=== PATIENT | male | born 1990 | race Caucasian/White ===

== ENCOUNTER 2018-08-20 12:23 | Inpatient (IN) | payer MEDICAID, OTHER ==
[2018-08-20] VITALS (11 sets, daily range): BP systolic 133–183; BP diastolic 94–123
[~2018-08-20] VITALS: Ht 190.5 cm; Wt 90.7 kg
--- OUTSIDE RECORDS SUMMARY | 2018-08-20 12:29 | XMS REPORT | Continuity of Care Document ---
Author Author [facility] Address Unknown Phone Unavailable Allergies There is no data. Medications There is no data. Problems There is no data. Procedures There is no data. Results There is no data. Encounters ACCT No. Visit Date/Time Discharge Status Pt. Type Provider Facility Loc./Unit Complaint [id number] 08/08/2013 17:59:00 08/08/2013 23:59:59 CLS Outpatient
[2018-08-20] MEDS ORDERED: LORazepam INJ 2 MG/ML (ATIVAN) VIAL ONE (12:45)
[2018-08-20 12:48] LABS: BASOPHILS % (AUTO) 1 % (0-10); EOSINOPHILS # (AUTO) 0.3 10^3/uL (0.0-0.3); EOSINOPHILS % (AUTO) 5 % (0-10); HEMATOCRIT 40 % (40-54); HEMOGLOBIN 14.4 G/DL (13.3-17.7); LYMPHOCYTES # (AUTO) 1.5 X 10^3 (1.0-4.0); LYMPHOCYTES % (AUTO) 28 % (12-44); MEAN CORPUSCULAR HEMOGLOBIN 36 PG (25-34); MEAN CORPUSCULAR HGB CONC 36 G/DL (32-36); MEAN CORPUSCULAR VOLUME 101 FL (80-99); MONOCYTES # (AUTO) 0.4 X 10^3 (0.0-1.0); MONOCYTES % (AUTO) 7 % (0-12); NEUTROPHILS # (AUTO) 3.3 X 10^3 (1.8-7.8); NEUTROPHILS % (AUTO) 60 % (42-75); PLATELET COUNT 168 10^3/uL (130-400); RED CELL DISTRIBUTION WIDTH 12.4 % (10.0-14.5); WHITE BLOOD COUNT 5.5 10^3/uL (4.3-11.0)
[2018-08-20] MEDS ORDERED: NS IV 1000 ML 1,000 ML IV ONE (12:55)
[2018-08-20] MEDS ORDERED: QUET100T PO (12:56)
[2018-08-20] MEDS ORDERED: OMEP20TA7 PO (12:56)
[2018-08-20] MEDS ORDERED: PROP10TA8 PO (12:56)
[2018-08-20] MEDS ORDERED: AMPH20CA5 PO (12:56)
[2018-08-20 13:01] LABS: ALANINE AMINOTRANSFERASE 82 U/L (0-55); ALBUMIN 4.5 GM/DL (3.2-4.5); ALKALINE PHOSPHATASE 95 U/L (40-136); BILIRUBIN,TOTAL 0.8 MG/DL (0.1-1.0); BUN/CREATININE RATIO 4; CALCIUM 10.5 MG/DL (8.5-10.1); CARBON DIOXIDE 18 MMOL/L (21-32); CHLORIDE 99 MMOL/L (98-107); CREATININE SERUM 1.05 MG/DL (0.60-1.30); GFR ESTIMATED > 60; GLUCOSE 158 MG/DL (70-105); MAGNESIUM 2.7 MG/DL (1.8-2.4); POTASSIUM 3.6 MMOL/L (3.6-5.0); SODIUM 139 MMOL/L (135-145); TOTAL PROTEIN 7.9 GM/DL (6.4-8.2)
[2018-08-20 13:11] LABS: BILIRUBIN,URINE NEGATIVE (NEGATIVE); CLARITY,URINE CLEAR; COLOR,URINE YELLOW; GLUCOSE, URINE (UA) NEGATIVE (NEGATIVE); KETONES,URINE NEGATIVE (NEGATIVE); LEUKOCYTE ESTERASE ,URINE 1+ (NEGATIVE); NITRITE,URINE NEGATIVE (NEGATIVE); PH,URINE 5 (5-9); PROTEIN,URINE 2+ (NEGATIVE); UROBILINOGEN,URINE NORMAL (NORMAL)
[2018-08-20 13:19] LABS: BACTERIA,URINE NEGATIVE /HPF; GRANULAR CASTS,URINE RARE /LPF; RBC,URINE 0-2 /HPF; SQUAMOUS EPITHELIAL CELL,UR RARE /HPF
[2018-08-20 13:26] LABS: AMPHETAMINE SCREEN, URINE POSITIVE (NEGATIVE); BARBITURATE SCREEN URINE NEGATIVE (NEGATIVE); BENZODIAZEPINES SCREEN URINE NEGATIVE (NEGATIVE); CANNABINOID SCREEN, URINE POSITIVE (NEGATIVE); COCAINE SCREEN URINE NEGATIVE (NEGATIVE); METHADONE STAT NEGATIVE (NEGATIVE); METHAMPHETAMINE SCREEN URINE S NEGATIVE (NEGATIVE); OPIATE SCREEN URINE NEGATIVE (NEGATIVE); OXYCODONE STAT NEGATIVE (NEGATIVE); PROPOXYPHENE STAT NEGATIVE (NEGATIVE); TRICYCLIC ANTIDEPRESSANTS SCRE POSITIVE (NEGATIVE)
--- NOTE | 2018-08-20 13:44 | Diagnostic Imaging Report ---
PROCEDURE: CT head without contrast. TECHNIQUE: Multiple contiguous axial images were obtained through the brain without the use of intravenous contrast. INDICATION: Seizure. FINDINGS: The ventricles and sulci are within normal limits. There is no hydrocephalus or cerebral edema. There is no midline shift or mass effect. There is no intracranial mass, hemorrhage, or extra-axial fluid collection. The visualized paranasal sinuses and mastoid air cells are clear. There are no regional areas of decreased attenuation appreciated to suggest an acute CVA. IMPRESSION: No acute intracranial abnormality. Dictated by: Dictated on workstation # [id number]
--- NOTE | 2018-08-20 13:56 | Diagnostic Imaging Report ---
INDICATION: Pain. Three views were obtained. FINDINGS: The left foot is normal. There is no fracture dislocation. Soft tissues are unremarkable. IMPRESSION: No fracture or dislocation. Dictated by: Dictated on workstation # [id number]
--- NOTE | 2018-08-20 14:01 | Diagnostic Imaging Report ---
INDICATION: Seizure and fell, pain TECHNIQUE: 3 AP view foot along with oblique and lateral view right great toe 1:43 PM CORRELATION STUDY: None FINDINGS: Osseous structures of the foot intact. Alignment anatomic. Toes are held in slight flexure. The soft tissues are unremarkable. IMPRESSION: 1. Negative for acute bony abnormality of the right foot and great toe. Dictated by: Dictated on workstation # [id number]
--- NOTE | 2018-08-20 14:09 | Diagnostic Imaging Report ---
PROCEDURE: CT chest, abdomen, and pelvis with contrast. INDICATION: Seizure, possibly hit head in bath. Diminished recent alcohol intake. Pain between shoulders and pain with breathing. Back pain x1 week but significantly increased today. TECHNIQUE: CT imaging of the chest, abdomen and pelvis following the administration of intravenous contrast. CORRELATION STUDY: None FINDINGS: CT CHEST: Heart size normal. Trace pericardial effusion. No significant mediastinal hematoma. No pathologic enlarged mediastinal and/or hilar lymph nodes. Thoracic aortic contour and lumen, unremarkable, lung zhao are clear. No infiltrate, effusion or pneumothorax. Osseous structures demonstrate ribs and sternum to be intact. There is slight loss of height with anterior wedging multiple thoracic vertebral bodies. Most pronounced at T7, to a lesser degree T8-T9 vertebral body segments. Age of these are somewhat indeterminate. Only slight loss of height demonstrated. No significant surrounding soft tissue edema. CT ABDOMEN and PELVIS: Liver enlarged at greater than 20 cm. Rather diffuse hepatic steatosis is present without definitive focal lesion. Gallbladder, spleen and adrenal glands are unremarkable. Question very slight haziness about the region of the uncinate process of the pancreas. Pancreas otherwise unremarkable. Abdominal aorta normal in contour. Kidneys with normal enhancement. There is diffuse wall thickening of the colon. This may largely be attributed to its relatively collapsed state. Colitis would be difficult to exclude. Normal appendix present. No significant abdominal ascites or free air. The urinary bladder is unremarkable but is relatively decompressed. Prostate gland unremarkable. Structures including lumbar spine, sacrum and pelvis appearing unremarkable. IMPRESSION: CT CHEST: 1. There is slight loss of height with superior compression deformities and anterior wedging of multiple midthoracic vertebral bodies. Age of these are indeterminate. Given the appearance and history, possibility of acute compression deformity is not excluded. If further assessment is desired, MRI would be recommended. 2. Otherwise, negative for acute findings in the chest. CT ABDOMEN and PELVIS: 1. Negative for acute traumatic abdomen about the abdomen or pelvis. 2. Hepatomegaly with rather significant severity hepatic steatosis. 3. There is diffuse colonic wall thickening. Likely largely due to its collapsed state. Component of colitis would be difficult to exclude. No obstruction. Normal appendix. Dictated by: Dictated on workstation # [id number]
--- NOTE | 2018-08-20 14:27 | ED Neurological Problem ---
General Chief Complaint: Neurological Problems Stated Complaint: SEIZURE ACTIVITY Nursing Triage Note: pt presents to ed via ems from home for seizure. reports has had one previous seizure reltated to dehydration years ago. pt states he was in his bathroom before the seizure and possible hit his head on the tub. pt reports he has recently within the last 2-3 weeks cut down his alcohol intake to try to get off alcohol. pt reports pain in inbetween shoulders and pain with breathing. pt reports he has had back pain x 1 week but is significantly worse today. Nursing Sepsis Screen: No Definite Risk Source: patient, family Exam Limitations: no limitations History of Present Illness Date Seen by Provider: Aug 20, 2018 Time Seen by Provider: 12:39 Initial Comments Patient presents via EMS after having a seizure at home. His girlfriend heard him collapse in the bathroom and then found him convulsing on the floor. She reports the entire event lasted less than 2 minutes. He was conscious afterwards but had confused speech. This improved prior to arriving at the ER. Patient has been attempting to wean himself off alcohol. His last drink was sometime last night. He is accustomed to drinking up to 1 L of vodka daily. He complains of some upper back pain between and below his shoulder blades. He has had this for several days but it is much worse after the seizure. Patient was ambulatory at the scene and walked out with EMS. Patient reports he had one seizure previously about 5 years ago when he was dehydrated. Fingerstick blood sugar was 176. Allergies and Home Medications Allergies Coded Allergies: No Known Drug Allergies (Unverified , 08/20/18) Home Medications Propranolol HCl 10 Mg Tablet, 5 MG PO HS, (Reported) Quetiapine Fumarate 100 Mg Tablet, 100 MG PO HS, (Reported) Patient Home Medication List Home Medication List Reviewed: Yes Review of Systems Review of Systems Constitutional: no symptoms reported Eyes: No Symptoms Reported Ears, Nose, Mouth, Throat: no symptoms reported Respiratory: no symptoms reported Cardiovascular: see HPI, other (Tachycardia) Gastrointestinal: no symptoms reported Genitourinary: no symptoms reported Musculoskeletal: see HPI Skin: no symptoms reported Psychiatric/Neurological: See HPI Endocrine: No Symptoms Reported Hematologic/Lymphatic: No Symptoms Reported Past Bhdbvci-Rmanme-Vbahmp Hx Past Med/Social Hx: Reviewed and Corrections made Patient Social History Alcohol Use: Regular Use Alcohol Beverage of Choice: Beer, Vodka (Typically 500-750 mL daily.) Recreational Drug Use: No Smoking Status: Former Smoker Type Used: Cigarettes Former Smoker, Quit: Jul 05, 2018 Recent Foreign Travel: No Contact w/Someone Who Travel: No Recent Infectious Disease Expo: No Recent Hopitalizations: No Physical Abuse: No Sexual Abuse: No Mistreated: No Fear: No Seasonal Allergies Seasonal Allergies: No Past Medical History Surgeries: Yes (r foot) Respiratory: No Cardiac: Yes Hypertension Neurological: Yes (has had 1 seizure before) Genitourinary: No Gastrointestinal: Yes Gastroesophageal Reflux Musculoskeletal: No Endocrine: No HEENT: No Cancer: No Psychosocial: Yes (Alcoholism) Sleep Difficulties Integumentary: Yes Eczema Blood Disorders: No Adverse Reaction/Blood Tranf: No Physical Exam Vital Signs Vital Signs - First Documented 08/20/18 12:35 Temp 98.8 Pulse 130 Resp 18 B/P (MAP) 156/113 (127) Pulse Ox 97 Capillary Refill : Less Than 3 Seconds Height, Weight, BMI Height: 6'3.00" Weight: 200lbs. oz. 90.465190zt; BMI Method:Stated General Appearance: WD/WN, no apparent distress HEENT: PERRL/EOMI, pharynx normal, other (Contusion left forehead) Neck: non-tender, full range of motion, supple, normal inspection Respiratory: lungs clear, normal breath sounds, no respiratory distress, no accessory muscle use Cardiovascular: regular rate, rhythm, no edema, no murmur Gastrointestinal: normal bowel sounds, non tender, soft Back: normal inspection, vertebral tenderness (Lower thoracic spine mildly tender) Extremities: normal inspection, no pedal edema, other (Damage to the distal right great toe with a crack through the nail. Dry blood on the toe but no active bleeding. Left great toe is also injured with ecchymosis under the nail. ) Neurologic/Psychiatric: wire spooler II-XII nml as tested, no motor/sensory deficits, alert, normal mood/affect, oriented x 3 Crainal Nerves: normal hearing, normal speech, PERRL Coordination/Gait: normal gait Motor/Sensory: no motor deficit, no sensory deficit Skin: normal color, warm/dry Progress/Results/Core Measures Results/Orders Lab Results Laboratory Tests Test 08/20/18 12:34 08/20/18 12:45 08/20/18 12:54 08/20/18 13:02 Range/Units White Blood Count 5.5 4.3-11.0 10^3/uL Red Blood Count 4.01 L 4.35-5.85 10^6/uL Hemoglobin 14.4 13.3-17.7 G/DL Hematocrit 40 40-54 % Mean Corpuscular Volume 101 H 80-99 FL Mean Corpuscular Hemoglobin 36 H 25-34 PG Mean Corpuscular Hemoglobin Concent 36 32-36 G/DL Red Cell Distribution Width 12.4 10.0-14.5 % Platelet Count 168 130-400 10^3/uL Mean Platelet Volume 9.0 7.4-10.4 FL Neutrophils (%) (Auto) 60 42-75 % Lymphocytes (%) (Auto) 28 12-44 % Monocytes (%) (Auto) 7 0-12 % Eosinophils (%) (Auto) 5 0-10 % Basophils (%) (Auto) 1 0-10 % Neutrophils # (Auto) 3.3 1.8-7.8 X 10^3 Lymphocytes # (Auto) 1.5 1.0-4.0 X 10^3 Monocytes # (Auto) 0.4 0.0-1.0 X 10^3 Eosinophils # (Auto) 0.3 0.0-0.3 10^3/uL Basophils # (Auto) 0.0 0.0-0.1 10^3/uL Prothrombin Time 13.0 12.2-14.7 SEC INR Comment 1.0 0.8-1.4 Activated Partial Thromboplast Time 27 24-35 SEC Sodium Level 139 135-145 MMOL/L Potassium Level 3.6 3.6-5.0 MMOL/L Chloride Level 99 98-107 MMOL/L Carbon Dioxide Level 18 L 21-32 MMOL/L Anion Gap 22 H 5-14 MMOL/L Blood Urea Nitrogen 4 L 7-18 MG/DL Creatinine 1.05 0.60-1.30 MG/DL Estimat Glomerular Filtration Rate > 60 BUN/Creatinine Ratio 4 Glucose Level 158 H 70-105 MG/DL Calcium Level 10.5 H 8.5-10.1 MG/DL Corrected Calcium 10.1 8.5-10.1 MG/DL Magnesium Level 2.7 H 1.8-2.4 MG/DL Total Bilirubin 0.8 0.1-1.0 MG/DL Aspartate Amino Transf (AST/SGOT) 173 H 5-34 U/L Alanine Aminotransferase (ALT/SGPT) 82 H 0-55 U/L Alkaline Phosphatase 95 40-136 U/L Total Protein 7.9 6.4-8.2 GM/DL Albumin 4.5 3.2-4.5 GM/DL Serum Alcohol < 10 <10 MG/DL Glucometer 176 H 70-110 MG/DL Lipase 153 H 8-78 U/L Urine Color YELLOW Urine Clarity CLEAR Urine pH 5 5-9 Urine Specific [place] 1.015 L 1.016-1.022 Urine Protein 2+ H NEGATIVE Urine Glucose (UA) NEGATIVE NEGATIVE Urine Ketones NEGATIVE NEGATIVE Urine Nitrite NEGATIVE NEGATIVE Urine Bilirubin NEGATIVE NEGATIVE Urine Urobilinogen NORMAL NORMAL MG/DL Urine Leukocyte Esterase 1+ H NEGATIVE Urine RBC (Auto) 2+ H NEGATIVE Urine RBC 0-2 /HPF Urine WBC 5-10 H /HPF Urine Squamous Epithelial Cells RARE /HPF Urine Crystals NONE /LPF Urine Bacteria NEGATIVE /HPF Urine Casts PRESENT /LPF Urine Granular Casts RARE /LPF Urine Mucus NEGATIVE /LPF Urine Culture Indicated YES Urine Opiates Screen NEGATIVE NEGATIVE Urine Oxycodone Screen NEGATIVE NEGATIVE Urine Methadone Screen NEGATIVE NEGATIVE Urine Propoxyphene Screen NEGATIVE NEGATIVE Urine Barbiturates Screen NEGATIVE NEGATIVE Ur Tricyclic Antidepressants Screen POSITIVE H NEGATIVE Urine Phencyclidine Screen NEGATIVE NEGATIVE Urine Amphetamines Screen POSITIVE H NEGATIVE Urine Methamphetamines Screen NEGATIVE NEGATIVE Urine Benzodiazepines Screen NEGATIVE NEGATIVE Urine Cocaine Screen NEGATIVE NEGATIVE Urine Cannabinoids Screen POSITIVE H NEGATIVE My Orders Orders - MEGHANA FORBES MD Alcohol (08/20/18 12:41) Cbc With Automated Diff (08/20/18 12:41) Comprehensive Metabolic Panel (08/20/18 12:41) Drug Screen Stat (Urine) (08/20/18 12:41) Magnesium (08/20/18 12:41) Ua Culture If Indicated (08/20/18 12:41) Accucheck Stat ONCE (08/20/18 12:41) Saline Lock/Iv-Start (08/20/18 12:41) Ekg Tracing (08/20/18 12:41) Monitor-Rhythm Ecg Trace Only (08/20/18 12:41) Ekg Tracing (08/20/18 12:43) Lorazepam Injection (Ativan Injection) (08/20/18 12:45) Ns Iv 1000 Ml (Sodium Chloride 0.9%) (08/20/18 12:55) Ct Head Wo (08/20/18 12:55) Ct Chest/Abdomen/Pelvis W (08/20/18 12:55) Toe(S) (08/20/18 12:55) Toe(S) (08/20/18 12:55) Urine Culture (08/20/18 13:02) Lorazepam Injection (Ativan Injection) (08/20/18 14:45) Medications Given in ED Current Medications Medications Dose Ordered Sig/Vonda Route Start Time Stop Time Status Last Admin Dose Admin Lorazepam 2 mg ONCE ONCE IVP 08/20/18 14:45 08/20/18 14:46 DC 08/20/18 14:49 2 MG Lorazepam 2 mg STK-MED ONCE .ROUTE 08/20/18 12:45 08/20/18 12:50 DC 08/20/18 12:56 2 MG Sodium Chloride 1,000 ml @ 0 mls/hr Q0M ONCE IV 08/20/18 12:55 08/20/18 12:59 DC 08/20/18 12:40 0 MLS/HR Vital Signs/I&O 08/20/18 12:35 Temp 98.8 Pulse 130 Resp 18 B/P (MAP) 156/113 (127) Pulse Ox 97 Blood Pressure Mean: 127 FSBG Bedside Testing Finger Stick Blood Glucose: 176 Blood Glucose Action Taken: notified Progress Progress Note : Progress Note Patient was alert and oriented on arrival. He had signs and symptoms of alcohol withdrawal including seizure, hypertension, and tachycardia. His plan was to taper alcohol off while trying to quit. However, given these dangerous signs and symptoms of alcohol withdrawal, he would like to be admitted to help him get through the remainder of his withdrawal and then enter into some type of treatment program. He would like to try to do the treatment program somewhere in [place] if possible. He has a [employer] plan and [place]. He received 1 L of IV fluid and a total of 4 mg of Ativan in the ER. Patient complained of some abdominal pain radiating to the back as he was being transferred to the floor. Lipase was added at that time and was found to be slightly elevated. Initial ECG Impression Date: Aug 20, 2018 Initial ECG Impression Time: 15:07 Initial ECG Rate: 1230 Diagnostic Imaging Diagonstic Imaging: CT Plain Films/CT/US/NM/MRI: head Comments CT head viewed by me and report reviewed. See report below: NAME: ALBERTO MCDUFFIE REC#: [id number] PT STATUS: REG ER : 1990 PHYSICIAN: MEGHANA FORBES MD ADMIT DATE: 08/20/18/ER Signed Date of Exam:08/20/18 CT HEAD WO PROCEDURE: CT head without contrast. TECHNIQUE: Multiple contiguous axial images were obtained through the brain without the use of intravenous contrast. INDICATION: Seizure. FINDINGS: The ventricles and sulci are within normal limits. There is no hydrocephalus or cerebral edema. There is no midline shift or mass effect. There is no intracranial mass, hemorrhage, or extra-axial fluid collection. The visualized paranasal sinuses and mastoid air cells are clear. There are no regional areas of decreased attenuation appreciated to suggest an acute CVA. IMPRESSION: No acute intracranial abnormality. Dictated by: Dictated on workstation # [id number] Dict: 08/20/18 1339 Trans: 08/20/18 1356 [id number] Interpreted by: ONEAL BETANCOURT MD Electronically signed by: ONEAL BETANCOURT MD 08/20/18 1356 Diagonstic Imaging: CT Plain Films/CT/US/NM/MRI: chest, abdomen, pelvis Comments CT chest, abdomen and pelvis viewed by me and report reviewed. See report below : NAME: ALBERTO MCDUFFIE [facility] REC#: [id number] PT STATUS: REG ER : 1990 PHYSICIAN: MEGHANA FORBES MD ADMIT DATE: 08/20/18/ER Draft Date of Exam:08/20/18 CT CHEST/ABDOMEN/PELVIS W PROCEDURE: CT chest, abdomen, and pelvis with contrast. INDICATION: Seizure, possibly hit head in bath. Diminished recent alcohol intake. Pain between shoulders and pain with breathing. Back pain x1 week but significantly increased today. TECHNIQUE: CT imaging of the chest, abdomen and pelvis following the administration of intravenous contrast. CORRELATION STUDY: None FINDINGS: CT CHEST: Heart size normal. Trace pericardial effusion. No significant mediastinal hematoma. No pathologic enlarged mediastinal and/or hilar lymph nodes. Thoracic aortic contour and lumen, unremarkable, lung zhao are clear. No infiltrate, effusion or pneumothorax. Osseous structures demonstrate ribs and sternum to be intact. There is slight loss of height with anterior wedging multiple thoracic vertebral bodies. Most pronounced at T7, to a lesser degree T8-T9 vertebral body segments. Age of these are somewhat indeterminate. Only slight loss of height demonstrated. No significant surrounding soft tissue edema. CT ABDOMEN and PELVIS: Liver enlarged at greater than 20 cm. Rather diffuse hepatic steatosis is present without definitive focal lesion. Gallbladder, spleen and adrenal glands are unremarkable. Question very slight haziness about the region of the uncinate process of the pancreas. Pancreas otherwise unremarkable. Abdominal aorta normal in contour. Kidneys with normal enhancement. There is diffuse wall thickening of the colon. This may largely be attributed to its relatively collapsed state. Colitis would be difficult to exclude. Normal appendix present. No significant abdominal ascites or free air. The urinary bladder is unremarkable but is relatively decompressed. Prostate gland unremarkable. Structures including lumbar spine, sacrum and pelvis appearing unremarkable. IMPRESSION: CT CHEST: 1. There is slight loss of height with superior compression deformities and anterior wedging of multiple midthoracic vertebral bodies. Age of these are indeterminate. Given the appearance and history, possibility of acute compression deformity is not excluded. If further assessment is desired, MRI would be recommended. 2. Otherwise, negative for acute findings in the chest. CT ABDOMEN and PELVIS: 1. Negative for acute traumatic abdomen about the abdomen or pelvis. 2. Hepatomegaly with rather significant severity hepatic steatosis. 3. There is diffuse colonic wall thickening. Likely largely due to its collapsed state. Component of colitis would be difficult to exclude. No obstruction. Normal appendix. Dictated on workstation # [id number] Dict: 08/20/18 1355 Trans: 08/20/18 1409 [facility] [id number] Interpreted by: LANE CHRISTIANSEN DO Departure Communication (Admissions) Time/Spoke to Admitting Phy: 14:45 Dr. Pierre Impression Primary Impression: Alcohol withdrawal seizure Qualified Codes: F10.239 - Alcohol dependence with withdrawal, unspecified; R56.9 - Unspecified convulsions Additional Impressions: Contusion of forehead Qualified Codes: S00.83XA - Contusion of other part of head, initial encounter Compression fx, thoracic spine Qualified Codes: S22.000A - Wedge compression fracture of unspecified thoracic vertebra, initial encounter for closed fracture Toe contusion Qualified Codes: S90.219A - Contusion of unspecified great toe with damage to nail, initial encounter Elevated lipase Disposition: 09 ADMITTED INPATIENT Condition: Improved Admissions Decision to Admit Reason: Admit from ER (General) Decision to Admit/Date: Aug 20, 2018 Time/Decision to Admit Time: 12:45 MEGHANA FORBES MD Aug 20, 2018 14:27
[2018-08-20] MEDS ORDERED: LORazepam INJ 2 MG/ML (ATIVAN) VIAL IVP ONE (14:45)
[2018-08-20] MEDS ORDERED: fentaNYL INJECTION 100 MCG/2 ML AMP IVP ONE (15:15)
--- OUTSIDE RECORDS SUMMARY | 2018-08-20 15:34 | XMS REPORT | Continuity of Care Document ---
Author Author [facility] Address Unknown Phone Unavailable Allergies There is no data. Medications There is no data. Problems There is no data. Procedures There is no data. Results There is no data. Encounters ACCT No. Visit Date/Time Discharge Status Pt. Type Provider Facility Loc./Unit Complaint [id number] 08/08/2013 17:59:00 08/08/2013 23:59:59 CLS Outpatient
[2018-08-20] MEDS ORDERED: HYDROcodone/APAP 5 MG/325 MG (LORTAB) TAB PO PRN (16:30)
[2018-08-20] MEDS ORDERED: LORazepam INJ 2 MG/ML (ATIVAN) VIAL IM/IV PRN (16:30)
[2018-08-20] MEDS ORDERED: ANTACID SUSP 30 ML UDC (MYLANTA) PO PRN (16:30)
[2018-08-20] MEDS ORDERED: SENNA W/DOCUSATE (SENOKOT S) TABLET PO PRN (16:30)
[2018-08-20] MEDS ORDERED: D5 1/2 NS 1000 ML IV SOLUTION 1,000 ML IV PRN (16:30)
[2018-08-20] MEDS ORDERED: ONDANSETRON 4 MG (ZOFRAN) ORAL DISSOLVE TAB SL PRN (16:30)
[2018-08-20] MEDS ORDERED: ONDANSETRON 4 MG/2 ML (SDV) Z0FRAN IV PRN (16:30)
--- NOTE | 2018-08-20 16:44 | NUR ---
ALBERTO MCDUFFIE admitted to room CU9-1, with an admitting diagnosis of alcohol withdrawl, on 08/20/18 from AM via cart, accompanied by staff.ALBERTO MCDUFFIE introduced to surroundings, call light, bed controls, phone, TV, temperature control, lights, meal times, smoking policy, visitor policy, side rail policy, bathrooms and showers. Patient Rights given to patient in the handbook. ALBERTO MCDUFFIE verbalizes understanding that [facility] is not responsible for the loss or damage to any personal effects or valuables that are kept in the patients posession during their hospitalization. The following Patient Care Plans were discussed with the pt: Discharge Planning. ALBERTO MCDUFFIE verbalizes understanding of Interdisciplinary Patient Education. Patient and/or family were informed about the Rapid Response Team and its purpose.
[2018-08-20] MEDS: NS IV 1000 ML 1,000 ML IV SCH ×2 (17:06→23:02)
[2018-08-20] MEDS: PROPRANOLOL 20 MG (INDERAL) TABLET PO SCH ×2 (17:50→21:41)
--- NOTE | 2018-08-20 19:33 | NUR ---
Mag level elevated, order to hold Mag dose. And resume patient home Seroquel.
[2018-08-20] MEDS: LORazepam INJ 2 MG/ML (ATIVAN) VIAL IV PRN (19:46)
[2018-08-20] MEDS: MAGNESIUM OXIDE (MAG-OX)400 MG TAB PO SCH (19:47)
[2018-08-20] MEDS: QUEtiapine 200 MG (SEROquel) TAB IMMEDIATE RELEASE PO SCH (22:59)
[2018-08-20] MEDS: LORazepam 1 MG (ATIVAN) TAB PO PRN (23:02)
[2018-08-21] VITALS (19 sets, daily range): BP systolic 87–144; BP diastolic 49–107
[2018-08-21] MEDS: NS IV 1000 ML 1,000 ML IV SCH ×3 (06:10→19:07)
[2018-08-21] MEDS: LORazepam 1 MG (ATIVAN) TAB PO PRN ×4 (06:27→19:59)
[2018-08-21] MEDS: PROPRANOLOL 20 MG (INDERAL) TABLET PO SCH ×4 (06:27→21:45)
[2018-08-21] MEDS ORDERED: FLU QUADRIvalent (5+ YOA) 2018-2019 (AFLURIA) 0.5 ML IM ONE (07:30)
[2018-08-21] MEDS: MAGNESIUM OXIDE (MAG-OX)400 MG TAB PO SCH ×2 (07:39→19:06)
[2018-08-21] MEDS: FOLIC ACID 1 MG TAB PO SCH (08:27)
[2018-08-21] MEDS: THIAMINE 100 MG (VITAMIN B-1) TAB PO SCH (08:27)
[2018-08-21] MEDS: MULTIVIT W/MINERALS TAB (THERAGRAN M) PO SCH (08:28)
--- NOTE | 2018-08-21 10:12 | Consultation ---
History of Present Illness History of Present Illness Patient Consulted On(pierce/time) 08/21/18 10:06 Date Seen by Provider: Aug 21, 2018 Time Seen by Provider: 09:45 Reason for Visit: Thoracic Pain History of Present Illness 27 y/o male, attempting to detox from ETOH, apparently had witnessed seziure. Admitted to hospital, complaining about pain between shoulder blades, CT scan shows possible Thoracic spine fractures. Denies any prior history of pain or trauma. Denies any neuro symptoms presently. Allergies and Home Medications Allergies Coded Allergies: No Known Drug Allergies (Unverified , 08/20/18) Home Medications Propranolol HCl 10 Mg Tablet, 5 MG PO HS, (Reported) Quetiapine Fumarate 100 Mg Tablet, 100 MG PO HS, (Reported) Patient Home Medication List Home Medication List Reviewed: Yes Past Rcnahfg-Mwrejz-Gehhqj Hx Past Med/Social Hx: Reviewed and Corrections made Patient Social History Alcohol Use: Regular Use Number of Drinks Today: AA Alcohol Beverage of Choice: Beer, Vodka (Typically 500-750 mL daily.) Recreational Drug Use: Yes (occasionally smokes pot) Smoking Status: Former Smoker Type Used: Cigarettes Former Smoker, Quit: Jul 05, 2018 Recent Foreign Travel: No Contact w/Someone Who Travel: No Recent Infectious Disease Expo: No Recent Hopitalizations: No Physical Abuse: No Sexual Abuse: No Mistreated: No Fear: No Seasonal Allergies Seasonal Allergies: No Past Medical History Surgeries: Yes (r foot) Respiratory: No Cardiac: Yes Hypertension Neurological: Yes (has had 1 seizure before) Genitourinary: No Gastrointestinal: Yes Gastroesophageal Reflux Musculoskeletal: No Endocrine: No HEENT: No Cancer: No Psychosocial: Yes (Alcoholism) Sleep Difficulties Integumentary: Yes Eczema Blood Disorders: No Adverse Reaction/Blood Tranf: No Review of Systems-General Constitutional: weakness EENTM: no symptoms reported Respiratory: no symptoms reported Cardiovascular: no symptoms reported Gastrointestinal: no symptoms reported Genitourinary: no symptoms reported Musculoskeletal: back pain Skin: no symptoms reported Psychiatric/Neurological: Weakness Physical Exam-General Problems Physical Exam Vital Signs Vital Signs - First Documented 08/20/18 08/20/18 12:35 16:15 Temp 98.8 Pulse 130 Resp 18 B/P (MAP) 156/113 (127) Pulse Ox 97 O2 Delivery Room Air Capillary Refill : Less Than 3 Seconds General Appearance: WD/WN, no apparent distress Eyes: Bilateral Eye Normal Inspection HEENT: PERRL/EOMI Neck: non-tender, full range of motion, supple, normal inspection Respiratory: no respiratory distress, no accessory muscle use Cardiovascular: regular rate, rhythm Gastrointestinal: soft Rectal: deferred Back: muscle spasm, vertebral tenderness Extremities: normal range of motion, non-tender, normal inspection, no pedal edema, no calf tenderness, normal capillary refill Neurologic/Psychiatric: tag writer II-XII nml as tested, no motor/sensory deficits, alert, normal mood/affect Skin: normal color, warm/dry Lymphatic: no adenopathy Comments CT scan shows very minimal <10 % compression deformities of 2 of the upper/ middle vertabrae in the T spine. No signs of unstable fracture are noted. Assessment/Plan Assessment/Plan Admission Diagnosis/Plan ETOH withdrawal Seizures Thoracic compression fracture, mild, without neurologic involvement, stable Plan: we discussed options, his pain is already better, I think bracing would be difficult, and cumbersome, and unlikely to be compliant with anyway and not provide much clinical benefit. There for pain control, limited activities as he tolerates and follow up with me in 2-4 weeks as an outpatient. Clinical Quality Measures DVT/VTE Risk/Contraindication: RFS Level Per Nursing on Admit: 1=Low/No VTE PPX GERA MARTÍNEZ MD Aug 21, 2018 10:12
--- NOTE | 2018-08-21 11:00 | NUR ---
Spoke to patient he stated he took Omeprazole, Seroquel, Adderall, and Propranolol. He stated is prescribed the 20mg Adderall he does not take them all the time and when he does he cuts them in 1/. He did not say he had a local pharmacy. States he filled them in [place] where is from.
--- NOTE | 2018-08-21 13:34 | History & Physical-Hospitalist ---
History of Present Illness HPI/Chief Complaint This is a 27-year-old white male who was admitted with a new seizure after trying to taper off his alcohol intake to aggressively. He had had one previous seizure when he thinks he was drinking heavily and was dehydrated. He does complain about them a lot of muscle aches and pains from the seizure and is very interested in going to rehabilitation to help curtail his alcohol intake and obtain sobriety Source: patient Exam Limitations: no limitations Date Seen 08/21/18 Time Seen by a Provider: 13:00 Attending Physician Danae Muller MD PCP No,Local Physician Referring Physician Date of Admission Aug 20, 2018 at 14:45 Home Medications & Allergies Home Medications Reviewed patient Home Medication Reconciliation performed by pharmacy medication reconciliations nutrition technician and/or nursing. Patients Allergies have been reviewed. Allergies Allergies Coded Allergies No Known Drug Allergies (Unverified08/20/18) Past Chuhhpo-Daiqgv-Osshub Hx Past Med/Social Hx: Reviewed Nursing Past Med/Soc Hx, Reviewed and Corrections made Patient Social History Marrital Status: single, cohabiting Employed/Student: unemployed Alcohol Use: Regular Use Number of Drinks Today: AA Alcohol Beverage of Choice: Beer, Vodka (Typically 500-750 mL daily.) Recreational Drug Use: Yes (occasionally smokes pot) Smoking Status: Former Smoker Former Smoker, Quit: Jul 05, 2018 Type Used: Cigarettes Physical Abuse Screen: No Sexual Abuse: No Recent Foreign Travel: No Contact w/other who traveled: No Recent Hopitalizations: No Recent Infectious Disease Expo: No Seasonal Allergies Seasonal Allergies: No Past Medical History Cardiac: Hypertension Gastrointestinal: Gastroesophageal Reflux Psychosocial: Sleep Difficulties Skin/Integumentary: Eczema History of Blood Disorders: No Adverse Reaction to Blood Mcguire: No Review of Systems Constitutional: see HPI EENTM: no symptoms reported Respiratory: no symptoms reported Cardiovascular: no symptoms reported Gastrointestinal: heartburn Genitourinary: no symptoms reported Musculoskeletal: back pain, muscle pain, muscle stiffness Skin: no symptoms reported Psychiatric/Neurological: Anxiety, Depressed Physical Exam Physical Exam Vital Signs Vital Signs - First Documented 08/20/18 08/20/18 12:35 16:15 Temp 98.8 Pulse 130 Resp 18 B/P (MAP) 156/113 (127) Pulse Ox 97 O2 Delivery Room Air Capillary Refill : Less Than 3 Seconds Height, Weight, BMI Height: 6'3.00" Weight: 199lbs. 7.0oz. 90.309600ob; 25.0 BMI Method:Stated General Appearance: No Apparent Distress, WD/WN HEENT: Normal ENT Inspection Neck: Non Tender, Supple Respiratory: Chest Non Tender, Lungs Clear, Normal Breath Sounds, No Accessory Muscle Use, No Respiratory Distress Cardiovascular: Regular Rate, Rhythm, No Gallop, No Murmur Gastrointestinal: Normal Bowel Sounds, No Organomegaly, Non Tender, Soft Results Results/Procedures Labs Laboratory Tests 08/20/18 12:34 Patient resulted labs reviewed. Assessment/Plan Admission Diagnosis Alcoholism on detox protocol Seizure secondary to alcohol withdrawal Small compression fractures in the back Patient is currently doing well and advised that he cannot drive for 6 months because of the seizure. He is very interested in finding an inpatient rehabilitation unit. Currently is motivated and doing well Admission Status: Inpatient Order (span 2 midnights) Reason for Inpatient Admission: For detoxification Clinical Quality Measures DVT/VTE Risk/Contraindication: RFS Level Per Nursing on Admit: 1=Low/No VTE PPX DANAE MULLER MD Aug 21, 2018 13:34
--- NOTE | 2018-08-21 19:07 | NUR ---
Mag ox held d/t elevated Mag level. IVF currently on hold at this time. Resume PRN. Per day shift CONNER.
--- NOTE | 2018-08-21 19:40 | NUR ---
Upon entering patient room patient found standing at the bedside with all monitors/bp cuff off. Patient would only allow this insurance underwriter to take intermittent vital signs but is not willing to keep monitors on at this time. Patient agitated with staff. Patient c/o symptoms of detox. Patient administered Ativan per CIWA scale.
--- NOTE | 2018-08-21 21:15 | NUR ---
Patient approached the supervisor front at this time and requested permission to leave the ICU to "go on a walk". The MT called this RN as I was in a pt room and this RN asked her to tell the patient that was not allowed d/t seizure risk. Patient stood before MT and pulled out his IV and went back to his room. This investigative writer went to patient room and was able to salvage the IV site and explained to the patient the restrictions with seizure precautions. Patient continues to refuse to go to the bed, did allow this investigative writer to apply a portable tele pack at this time and did agree to stay in the room. Patient SO is at the bedside and seems supportive of nursing staff.
[2018-08-21] MEDS: LORazepam INJ 2 MG/ML (ATIVAN) VIAL IV PRN (21:44)
[2018-08-21] MEDS: QUEtiapine 200 MG (SEROquel) TAB IMMEDIATE RELEASE PO SCH (21:45)
[2018-08-22] MEDS: NS IV 1000 ML 1,000 ML IV SCH ×2 (01:50→09:43)
[2018-08-22 02:30] VITALS: BP 116/74
[2018-08-22 03:41] LABS: BASOPHILS % (AUTO) 1 % (0-10); EOSINOPHILS # (AUTO) 0.2 10^3/uL (0.0-0.3); EOSINOPHILS % (AUTO) 6 % (0-10); HEMATOCRIT 32 % (40-54); HEMOGLOBIN 11.2 G/DL (13.3-17.7); LYMPHOCYTES # (AUTO) 1.3 X 10^3 (1.0-4.0); LYMPHOCYTES % (AUTO) 35 % (12-44); MEAN CORPUSCULAR HEMOGLOBIN 36 PG (25-34); MEAN CORPUSCULAR HGB CONC 35 G/DL (32-36); MEAN CORPUSCULAR VOLUME 102 FL (80-99); MEAN PLATELET VOLUME 8.5 FL (7.4-10.4); MONOCYTES # (AUTO) 0.4 X 10^3 (0.0-1.0); MONOCYTES % (AUTO) 10 % (0-12); NEUTROPHILS # (AUTO) 1.8 X 10^3 (1.8-7.8); NEUTROPHILS % (AUTO) 49 % (42-75); PLATELET COUNT 149 10^3/uL (130-400); RED CELL DISTRIBUTION WIDTH 12.4 % (10.0-14.5); WHITE BLOOD COUNT 3.8 10^3/uL (4.3-11.0)
[2018-08-22 04:06] LABS: ALANINE AMINOTRANSFERASE 71 U/L (0-55); ALBUMIN 3.7 GM/DL (3.2-4.5); ALKALINE PHOSPHATASE 70 U/L (40-136); BUN/CREATININE RATIO 3; CALCIUM 9.2 MG/DL (8.5-10.1); CARBON DIOXIDE 21 MMOL/L (21-32); CHLORIDE 108 MMOL/L (98-107); CREATININE SERUM 0.88 MG/DL (0.60-1.30); GFR ESTIMATED > 60; GLUCOSE 97 MG/DL (70-105); POTASSIUM 3.5 MMOL/L (3.6-5.0); SODIUM 141 MMOL/L (135-145); TOTAL PROTEIN 6.2 GM/DL (6.4-8.2)
[2018-08-22] MEDS ORDERED: KCL 20 MEQ TAB (K-DUR) PO SCH (06:00)
[2018-08-22] MEDS ORDERED: MAGNESIUM 1 GM/100 ML IVPB 100 ML IV SCH (06:00)
[2018-08-22] MEDS ORDERED: POTASSIUM CL 10MEQ/50ML IVPB 50 ML IV SCH (06:00)
[2018-08-22 06:30] VITALS: BP 141/93
[2018-08-22] MEDS: PROPRANOLOL 20 MG (INDERAL) TABLET PO SCH (06:40)
[2018-08-22] MEDS: THIAMINE 100 MG (VITAMIN B-1) TAB PO SCH (06:42)
[2018-08-22] MEDS: MULTIVIT W/MINERALS TAB (THERAGRAN M) PO SCH (06:42)
[2018-08-22] MEDS ORDERED: KCL 20 MEQ TAB (K-DUR) PO ONE (06:45)
[2018-08-22 07:00] VITALS: BP 141/93
--- NOTE | 2018-08-22 07:43 | Pulmonary Consultation ---
History of Present Illness History of Present Illness Date of Consultation 08/22/18 07:37 Time Seen by Provider: 07:38 Date of Admission Reason for Visit: Thoracic Pain History of Present Illness 27yo admitted secondary to seizure after trying to taper off alcohol use aggressively. He did have a previous seizure when he was drinking heavily. Pt wants to stop drinking and is interested in rehab. No seizure activity since admission. He is on withdrawal protocol Allergies and Home Medications Allergies Coded Allergies: No Known Drug Allergies (Unverified , 08/20/18) Home Medications Propranolol HCl 10 Mg Tablet, 5 MG PO HS, (Reported) Quetiapine Fumarate 100 Mg Tablet, 100 MG PO HS, (Reported) Past Pjdnxnn-Lykqae-Wkgjju Hx Past Med/Social Hx: Reviewed Nursing Past Med/Soc Hx, Reviewed and Corrections made Patient Social History Alcohol Use: Regular Use Number of Drinks Today: AA Alcohol Beverage of Choice: Beer, Vodka (Typically 500-750 mL daily.) Recreational Drug Use: Yes (occasionally smokes pot) Smoking Status: Former Smoker Type Used: Cigarettes Former Smoker, Quit: Jul 05, 2018 Recent Foreign Travel: No Contact w/Someone Who Travel: No Recent Infectious Disease Expo: No Recent Hopitalizations: No Physical Abuse: No Sexual Abuse: No Mistreated: No Fear: No Seasonal Allergies Seasonal Allergies: No Past Medical History Surgeries: Yes (r foot) Respiratory: No Cardiac: Yes Hypertension Neurological: Yes (has had 1 seizure before) Genitourinary: No Gastrointestinal: Yes Gastroesophageal Reflux Musculoskeletal: No Endocrine: No HEENT: No Cancer: No Psychosocial: Yes (Alcoholism) Sleep Difficulties Integumentary: Yes Eczema Blood Disorders: No Adverse Reaction/Blood Tranf: No Review of Systems Time Seen by Provider: 07:41 Constitutional: Sweats, Weakness, Malaise; No: Fever, Chills, Other Eyes: No: Pain, Vision change, Conjunctivae inflammation, Eyelid inflammation, Other, Redness ENT: No: Ear pain, Ear discharge, Nose pain, Nose discharge, Nose congestion, Mouth pain, Mouth swelling, Throat pain, Throat swelling, Other Respiratory: No: Cough, Dry, Shortness of breath, SOB with excertion, Wheezing , Hemoptysis, Pleuritic Pain, Sputum, Wheezing, Other Cardiovascular: Palpitations, Lt Headedness; No: Chest Pain, Orthopnea, Paroxysmal Noc. Dyspnea, Edema, Other Gastrointestinal: Nausea; No: Vomiting, Abdominal Pain, Diarrhea, Constipation , Melena, Hematochezia, Other Sepsis Event Evaluation Height, Weight, BMI Height: 6'3.00" Weight: 200lbs. 7.0oz. 90.107298kn; 25.0 BMI Method:Stated Exam Exam Vital Signs Date Time Temp Pulse Resp B/P (MAP) Pulse Ox O2 Delivery O2 Flow Rate FiO2 08/22/18 06:30 98.0 80 20 141/93 (109) 98 Room Air 08/22/18 04:00 98 Room Air 08/22/18 02:30 98.6 89 16 116/74 (88) 96 Room Air 08/22/18 01:00 86 08/21/18 23:30 98.4 88 18 112/69 (83) 94 Room Air 08/21/18 23:20 98 Room Air 08/21/18 21:30 83 20 144/104 (117) 95 Room Air 08/21/18 19:50 96 Room Air 08/21/18 19:50 139/103 (115) 96 Room Air 08/21/18 19:45 98.3 94 10 08/21/18 19:00 98 08/21/18 18:00 86 16 136/97 (110) Room Air 08/21/18 16:00 88 15 143/107 (119) 97 Room Air 08/21/18 16:00 99 Room Air 08/21/18 15:00 86 20 Room Air 08/21/18 14:00 86 13 Room Air 08/21/18 13:11 100 08/21/18 13:00 92 24 141/94 (110) Room Air 08/21/18 12:00 85 17 141/94 (110) 97 Room Air 08/21/18 12:00 99 Room Air 08/21/18 11:00 90 22 107/74 (85) 97 Room Air 08/21/18 10:00 79 12 96/61 (73) 94 Room Air 08/21/18 09:00 79 13 87/49 (62) 94 Room Air 08/21/18 08:03 85 26 100/71 (81) 92 Room Air 08/21/18 07:58 99 Room Air I & O 08/22/18 07:00 Intake Total 2050 ml Output Total 2425 ml Balance -375 ml Height & Weight Height: 6'3.00" Weight: 200lbs. 7.0oz. 90.081262lc; 25.0 BMI Method:Stated General Appearance: No Apparent Distress, WD/WN HEENT: Normal ENT Inspection Neck: Non Tender, Supple Respiratory: Chest Non Tender, Lungs Clear, Normal Breath Sounds, No Accessory Muscle Use, No Respiratory Distress Cardiovascular: Regular Rate, Rhythm, No Gallop, No Murmur Capillary Refill: Less Than 3 Seconds Gastrointestinal: soft Results Lab Laboratory Tests 08/20/18 12:34 08/22/18 03:25 Assessment/Plan Assessment/Plan Alcoholism -Withdrawl protocol -Multivitamins Seizures -Seizure precations -Monitor Thoracic Compression fractures elevated LFTs probably secondary to alcohol -Check hepatitis panel Mild increase in amylase -repeat Anemia -Monitor -Check occult stool -Protonix Hypokalemia -replace LIZETH DAVID DO Aug 22, 2018 07:43
[2018-08-22 08:21] LABS: AMYLASE 53 U/L (25-125); LIPASE 70 U/L (8-78)
[2018-08-22] MEDS ORDERED: PANTOPRAZOLE 40 MG (PROTONIX) TAB PO SCH (09:00)
[2018-08-22] MEDS ORDERED: Multivitamins/Minerals Therap PO (09:06)
[2018-08-22] MEDS ORDERED: LORA-404 PO (09:06)
--- NOTE | 2018-08-22 09:16 | Discharge Summary-Hospitalist ---
Diagnosis/Chief Complaint Date of Admission Aug 20, 2018 at 14:45 Date of Discharge Discharge Date: Aug 22, 2018 Admission Diagnosis Alcoholism on detox protocol Seizure secondary to alcohol withdrawal Small compression fractures in the back Patient is currently doing well and advised that he cannot drive for 6 months because of the seizure. He is very interested in finding an inpatient rehabilitation unit. Currently is motivated and doing well Discharge Summary Discharge Physical Exam Allergies: Coded Allergies: No Known Drug Allergies (Unverified , 08/20/18) Vitals & I&Os Vital Signs Date Time Temp Pulse Resp B/P (MAP) Pulse Ox O2 Delivery O2 Flow Rate FiO2 08/22/18 07:18 82 08/22/18 07:00 141/93 (109) Room Air 08/22/18 06:30 98.0 20 98 General Appearance: No Apparent Distress, WD/WN Respiratory: Lungs Clear, No Accessory Muscle Use, No Respiratory Distress Cardiovascular: Regular Rate, Rhythm, No Gallop, No Murmur Gastrointestinal: Normal Bowel Sounds, Non Tender, Soft Neurologic/Psychiatric: Alert, Oriented x3 Hospital Course Pt was admitted to the hospital following seizure due to alcohol withdrawal. His last drink was the evening of 08/19. He had been cutting back on alcohol but stopped abrupting on 08/19 and had a seizure within 24 hours of that. He was monitored in the ICU and did well, requiring minimal medical support. On day of discharge he was requesting DC home and denied any symptoms of withdrawal. He has been ove 12 hours without Ativan dose. Financial Intern was consulted to assist with follow up for alcohol cessation. He was given a very short term prescription for Ativan to assist with symptoms until his follow up with [facility]. He plans to attend rehab in [place] where his insurance covers but would like assistance to help him until he is able to go there in October. Labs (last 24 hrs) Laboratory Tests 08/22/18 03:25: White Blood Count 3.8L, Red Blood Count 3.15L, Hemoglobin 11.2#L, Hematocrit 32L , Mean Corpuscular Volume 102H, Mean Corpuscular Hemoglobin 36H, Mean Corpuscular Hemoglobin Concent 35, Red Cell Distribution Width 12.4, Platelet Count 149, Mean Platelet Volume 8.5, Neutrophils (%) (Auto) 49, Lymphocytes (%) (Auto) 35, Monocytes (%) (Auto) 10, Eosinophils (%) (Auto) 6, Basophils (%) ( Auto) 1, Neutrophils # (Auto) 1.8, Lymphocytes # (Auto) 1.3, Monocytes # (Auto) 0.4, Eosinophils # (Auto) 0.2, Basophils # (Auto) 0.0, Sodium Level 141, Potassium Level 3.5L, Chloride Level 108H, Carbon Dioxide Level 21, Anion Gap 12 , Blood Urea Nitrogen 3L, Creatinine 0.88, Estimat Glomerular Filtration Rate > 60, BUN/Creatinine Ratio 3, Glucose Level 97, Calcium Level 9.2, Corrected Calcium 9.4, Total Bilirubin 1.0, Aspartate Amino Transf (AST/SGOT) 122H, Alanine Aminotransferase (ALT/SGPT) 71H, Alkaline Phosphatase 70, Total Protein 6.2L, Albumin 3.7, Amylase Level 53, Lipase 70 Patient resulted labs reviewed. Pending Labs Laboratory Tests 08/22/18 03:25: White Blood Count 3.8, Red Blood Count 3.15, Hemoglobin 11.2, Hematocrit 32, Mean Corpuscular Volume 102, Mean Corpuscular Hemoglobin 36, Mean Corpuscular Hemoglobin Concent 35, Red Cell Distribution Width 12.4, Platelet Count 149, Mean Platelet Volume 8.5, Neutrophils (%) (Auto) 49, Lymphocytes (%) (Auto) 35, Monocytes (%) (Auto) 10, Eosinophils (%) (Auto) 6, Basophils (%) (Auto) 1, Neutrophils # (Auto) 1.8, Lymphocytes # (Auto) 1.3, Monocytes # (Auto) 0.4, Eosinophils # (Auto) 0.2, Basophils # (Auto) 0.0, Sodium Level 141, Potassium Level 3.5, Chloride Level 108, Carbon Dioxide Level 21, Anion Gap 12, Blood Urea Nitrogen 3, Creatinine 0.88, Estimat Glomerular Filtration Rate > 60, BUN/ Creatinine Ratio 3, Glucose Level 97, Calcium Level 9.2, Corrected Calcium 9.4, Total Bilirubin 1.0, Aspartate Amino Transf (AST/SGOT) 122, Alanine Aminotransferase (ALT/SGPT) 71, Alkaline Phosphatase 70, Total Protein 6.2, Albumin 3.7, Amylase Level 53, Lipase 70, Hepatitis A IgM Antibody [Pending], Hepatitis B Surface Antigen [Pending], Hepatitis B Core IgM Antibody [Pending], Hepatitis C Antibody [Pending] Discussion & Recommendations Discharge Planning: >30 minutes discharge planning Discharge Home Medications: Active Scripts Active Ativan (Lorazepam) 0.5 Mg Tablet 0.5 Mg PO BID PRN [Multivitamins/Minerals Therap] 1 EA Tablet 1 Ea PO DAILY@0700 Reported Seroquel (Quetiapine Fumarate) 100 Mg Tablet 100 Mg PO HS Adderall Xr 20 mg Capsule (Dextroamphetamine/Amphetamine) 20 Mg Cap.er.24h 20 Mg PO Omeprazole 20 Mg Tablet.dr 20 Mg PO Propranolol HCl 10 Mg Tablet 5 Mg PO HS Instructions to patient/family Please see electronic discharge instructions given to patient. Clinical Quality Measures DVT/VTE Risk/Contraindication: RFS Level Per Nursing on Admit: 1=Low/No VTE PPX MK TEJADA MD Aug 22, 2018 09:16
--- NOTE | 2018-08-22 09:25 | Discharge Inst-Simple/Standard ---
Discharge Inst-Standard Discharge Medications New, Converted or Re-Newed RX: RX on Chart Patient Instructions/Follow Up Plan of Care/Instructions/FU: Please continue to take your medications as written. Please follow up with Dr Garcia as scheduled. Activity as Tolerated: Yes (No driving for 6 months) Discharge Diet: No Restrictions Return to The Hospital For: Worsening withdrawal symptoms (shakey, nausea, headache, hallucinations, seizure), chest pain, shortness of breath, if you feel you are getting worse. MK TEJADA MD Aug 22, 2018 09:25
--- NOTE | 2018-08-22 09:37 | NUR ---
CM/SS spoke with the patient. Supplied him with contact information for [facility] and [facility], discussed what is offered at each location. Patient was interested in the information and wanted to research the facilities more before scheduling. Discussed the benefits of reaching out for support and counseling through his treatment process.
[2018-08-22] MEDS: FOLIC ACID 1 MG TAB PO SCH (09:42)
[2018-08-22] MEDS: MAGNESIUM OXIDE (MAG-OX)400 MG TAB PO SCH (09:43)
[2018-08-23 07:41] LABS: HEPATITIS C ANTIBODY C Non-Reactive (Non-Reactive)
== END 2018-08-22 10:06 | disposition home or self-care (01) | DRG 897 ==
LOC: EDUNIT# 12:23 → ER 12:25 → ICU 14:45
PROVIDERS: ADMIT Internal Medicine; ATTEND Internal Medicine
DX: F10.231 Alcohol dependence with withdrawal delirium (principal); R56.9 Unspecified convulsions; R00.0 Tachycardia, unspecified; S00.83XA Contusion of other part of head, initial encounter; S90.211A Contusion of right great toe with damage to nail, initial encounter; S90.212A Contusion of left great toe with damage to nail, initial encounter; S22.009A Unspecified fracture of unspecified thoracic vertebra, initial encounter for closed fracture; F41.9 Anxiety disorder, unspecified; F32.9 Major depressive disorder, single episode, unspecified; I10 Essential (primary) hypertension; K21.9 Gastro-esophageal reflux disease without esophagitis; Z87.891 Personal history of nicotine dependence; W19.XXXA Unspecified fall, initial encounter; Y92.002 Bathroom of unspecified non-institutional (private) residence as the place of occurrence of the external cause
CPT/HCPCS: 36415; 70450; 71260; 73660; 74177; 80053; 80074; 80306; 80320; 81000; 82150; 82962; 83690; 83735; 85025; 85610; 85730; 87077; 87088; 93005; 93041